=== PATIENT | female | born 1950 | race Caucasian/White ===

== ENCOUNTER 2021-02-02 14:01 | Emergency (ER) | payer MEDICARE, BC ==
[~2021-02-02] VITALS: Ht 167.6 cm; Wt 75.0 kg
[~2021-02-02 14:01] MED LIST: ALBU8.5H8 INH; BENZ-16 PO; CYCL-1 PO; DEXA6TAB PO; DICL100G15 TOP; ESOM40CA49 PO; FENO160T PO; FLO0.4C PO; LEVO100T PO; METO-395 PO; OLME5TAB3 PO; PITA2TAB2 PO; ZOLP5TAB8 PO
[2021-02-02] MEDS ORDERED: normal saline 1000ML IV soln IVB ONE ×2 (14:30→15:15)
[2021-02-02 14:46] LABS: BASOPHILS # (AUTO) 0.1 X10'3 (0-0.2); BASOPHILS % (AUTO) 1.2 % (0-1); EOSINOPHILS # (AUTO) 0.3 X10'3 (0-0.9); EOSINOPHILS % (AUTO) 5.6 % (0-6); HEMATOCRIT 35.3 % (35.0-45.0); HEMOGLOBIN 11.9 g/dl (12.0-16.0); LYMPHOCYTES # (AUTO) 1.5 X10'3 (1.1-4.8); LYMPHOCYTES % (AUTO) 24.1 % (21-51); MEAN CORPUSCULAR HEMOGLOBIN 29.6 PG (27.0-31.0); MEAN CORPUSCULAR HGB CONC 33.6 g/dL (33.0-36.5); MEAN CORPUSCULAR VOLUME 87.9 FL (78-98); MEAN PLATELET VOLUME 7.7 FL (7.4-10.4); MONOCYTES # (AUTO) 0.5 X10'3 (0-0.9); MONOCYTES % (AUTO) 7.6 % (2-12); NEUTROPHILS # (AUTO) 3.7 X10'3 (1.8-7.7); NEUTROPHILS % (AUTO) 61.5 % (42-75); PLATELET COUNT 302 X10'3 (140-440); RED BLOOD COUNT 4.01 X10'6 (4.20-5.60); RED CELL DISTRIBUTION WIDTH 15.1 % (11.5-14.5); WHITE BLOOD COUNT 6.1 X10'3 (4.5-11.0)
[2021-02-02 15:01] LABS: ALANINE AMINOTRANSFERASE 18 U/L (12-78); ALBUMIN 3.8 G/DL (3.4-5.0); ALBUMIN/GLOBULIN RATIO 1.2 (1.1-1.5); ALKALINE PHOSPHATASE 41 IU/L (46-116); ANION GAP 10 (8-16); ASPARTATE AMINO TRANSFERASE 34 U/L (10-37); BILIRUBIN,TOTAL 0.4 MG/DL (0.1-1.0); BLOOD UREA NITROGEN 34 MG/DL (7-18); BUN/CREATININE RATIO 17.8 (6.6-38.0); CALCIUM 10.5 MG/DL (8.5-10.1); CHLORIDE 95 MMOL/L (99-107); CREATININE 1.91 MG/DL (0.40-0.90); GLUCOSE 98 MG/DL (70-104); POTASSIUM 4.5 MMOL/L (3.5-5.1); SODIUM 129 MMOL/L (135-145); TOTAL CARBON DIOXIDE 24.3 MMOL/L (24-32); TOTAL PROTEIN 6.9 G/DL (6.4-8.2); eGFR 26 ML/MIN
[2021-02-02 15:08] LABS: MAGNESIUM 1.6 MG/DL (1.5-2.4)
[2021-02-02 16:36] VITALS: BP 161/98
== END 2021-02-02 16:37 | disposition home or self-care (01) ==
LOC: ER 14:01
DX: N17.9 Acute kidney failure, unspecified (principal); R55 Syncope and collapse; M54.2 Cervicalgia; R42 Dizziness and giddiness; I10 Essential (primary) hypertension; K21.9 Gastro-esophageal reflux disease without esophagitis; E03.9 Hypothyroidism, unspecified; G89.29 Other chronic pain; Z88.8 Allergy status to other drugs, medicaments and biological substances; Z88.1 Allergy status to other antibiotic agents; Z88.5 Allergy status to narcotic agent; Z88.6 Allergy status to analgesic agent; Z79.899 Other long term (current) drug therapy
CPT/HCPCS: 36415; 71045; 80053; 83735; 83880; 84484; 85025; 93005; 99285; J7030

== ENCOUNTER 2021-07-21 07:17 | Emergency (ER) | payer MEDICARE, BC ==
[~2021-07-21] VITALS: Ht 167.6 cm; Wt 77.0 kg
[~2021-07-21 07:17] MED LIST changes: +ALBU8.5H17 INH; -ALBU8.5H8 INH
[2021-07-21] MEDS ORDERED: acetaminophen 325mg tablet PO ONE (07:25)
[2021-07-21] MEDS ORDERED: HYDROcodone/acetaminophen 5mg/325mg tablet PO ONE (09:45)
[2021-07-21] MEDS ORDERED: oxyCODONE/APAP 5-325mg tablet PO ONE (10:00)
[2021-07-21 11:22] VITALS: BP 203/91
--- NOTE | 2021-07-21 11:29 | NUR ---
BACK BRACE APPLIED BY CONTRACTS SPECIALIST. BILL
[2021-07-21] MEDS ORDERED: PER5325T PO (13:49)
[2021-07-21] MEDS ORDERED: OXYC-145 PO (18:33)
== END 2021-07-21 11:56 | disposition home or self-care (01) ==
LOC: ER 07:20
DX: M48.54XA Collapsed vertebra, not elsewhere classified, thoracic region, initial encounter for fracture (principal); M54.89 Other dorsalgia; M25.551 Pain in right hip; I10 Essential (primary) hypertension; K21.9 Gastro-esophageal reflux disease without esophagitis; E03.9 Hypothyroidism, unspecified; G89.29 Other chronic pain; Z88.8 Allergy status to other drugs, medicaments and biological substances; Z88.1 Allergy status to other antibiotic agents; Z88.6 Allergy status to analgesic agent; Z79.899 Other long term (current) drug therapy
CPT/HCPCS: 72128; 72131; 72192; 73502; 99285

== ENCOUNTER 2021-07-21 17:56 | Emergency (ER) | payer MEDICARE, BC ==
[~2021-07-21] VITALS: Ht 167.6 cm; Wt 77.3 kg
[~2021-07-21 17:56] MED LIST changes: +PER5325T PO
[2021-07-21 18:28] VITALS: BP 151/100
--- NOTE | 2021-07-21 18:32 | NUR ---
pt seen, treated and d/c by provider in triage.
[2021-07-21] MEDS ORDERED: OXYC-145 PO (18:33)
== END 2021-07-21 18:37 | disposition home or self-care (01) ==
LOC: ER 17:57
DX: M54.6 Pain in thoracic spine (principal); I10 Essential (primary) hypertension; K21.9 Gastro-esophageal reflux disease without esophagitis; E03.9 Hypothyroidism, unspecified; G89.29 Other chronic pain; Z76.0 Encounter for issue of repeat prescription; Z88.8 Allergy status to other drugs, medicaments and biological substances; Z88.5 Allergy status to narcotic agent; Z88.1 Allergy status to other antibiotic agents; Z88.6 Allergy status to analgesic agent; Z79.899 Other long term (current) drug therapy
CPT/HCPCS: 99281; 99283

== ENCOUNTER → 2021-09-01 | Emergency (ER) | payer MEDICARE, BC ==
[~2021-09-01] VITALS: Ht 167.6 cm; Wt 75.0 kg
[~2021-09-01] MED LIST changes: +CEPH250C PO; +DEC4T PO; +LISI20TA28 PO; +NOR5T PO; +ONDA4TAB6 PO; +OXYC-145 PO; +OXYC5CAP19 PO; +OXYC5TAB2 PO; +PREG200C28 PO; +fentaNYL/PF 50MCG/1 ML 2ML syringe IV ONE; +hydrALAZINE 20mg/ml inj. IV ONE; +morphine 4 MG/ML inj SYRINge IV ONE; +ondansetron/PF 4mg/2ml inj IV ONE
[2021-09-01 15:45] VITALS: BP 128/87
== END | disposition home or self-care (01) ==
LOC: ER 12:22
DX: M54.89 Other dorsalgia (principal); I10 Essential (primary) hypertension; R11.2 Nausea with vomiting, unspecified; R51.9 Headache, unspecified; K21.9 Gastro-esophageal reflux disease without esophagitis; E03.9 Hypothyroidism, unspecified; G89.29 Other chronic pain; Z88.1 Allergy status to other antibiotic agents; Z88.8 Allergy status to other drugs, medicaments and biological substances; Z88.6 Allergy status to analgesic agent; Z79.899 Other long term (current) drug therapy
CPT/HCPCS: 96374; 96375; 99284; J0360; J2270; J2405; J3010

== ENCOUNTER 2021-09-02 11:52 | Inpatient (IN) | payer MEDICARE, BC ==
[~2021-09-02] VITALS: Ht 165.1 cm; Wt 70.0 kg
[~2021-09-02 11:52] MED LIST changes: -CEPH250C PO; -DEC4T PO; -LISI20TA28 PO; -NOR5T PO; -OXYC5TAB2 PO; -PER5325T PO; -PREG200C28 PO; -fentaNYL/PF 50MCG/1 ML 2ML syringe IV ONE; -hydrALAZINE 20mg/ml inj. IV ONE; -morphine 4 MG/ML inj SYRINge IV ONE; -ondansetron/PF 4mg/2ml inj IV ONE
[2021-09-02] MEDS ORDERED: ondansetron 4mg rapidly disintigrating tab PO ONE (12:05)
[2021-09-02 12:54] LABS: BASOPHILS % (AUTO) 0.5 % (0-1); EOSINOPHILS # (AUTO) 0.1 X10'3 (0-0.9); EOSINOPHILS % (AUTO) 1.3 % (0-6); HEMATOCRIT 42.1 % (35.0-45.0); HEMOGLOBIN 14.2 g/dl (12.0-16.0); LYMPHOCYTES # (AUTO) 0.6 X10'3 (1.1-4.8); LYMPHOCYTES % (AUTO) 8.1 % (21-51); MEAN CORPUSCULAR HEMOGLOBIN 31.3 PG (27.0-31.0); MEAN CORPUSCULAR HGB CONC 33.8 g/dL (33.0-36.5); MEAN CORPUSCULAR VOLUME 92.8 FL (78-98); MEAN PLATELET VOLUME 7.4 FL (7.4-10.4); MONOCYTES # (AUTO) 0.6 X10'3 (0-0.9); MONOCYTES % (AUTO) 7.7 % (2-12); NEUTROPHILS % (AUTO) 82.4 % (42-75); PLATELET COUNT 341 X10'3 (140-440); RED BLOOD COUNT 4.54 X10'6 (4.20-5.60); RED CELL DISTRIBUTION WIDTH 13.9 % (11.5-14.5); WHITE BLOOD COUNT 7.3 X10'3 (4.5-11.0)
[2021-09-02 13:02] LABS: ALANINE AMINOTRANSFERASE 109 U/L (12-78); ALBUMIN 4.3 G/DL (3.4-5.0); ALBUMIN/GLOBULIN RATIO 1.3 (1.1-1.5); ALKALINE PHOSPHATASE 111 IU/L (46-116); ANION GAP 12 (8-16); ASPARTATE AMINO TRANSFERASE 132 U/L (10-37); BILIRUBIN,TOTAL 0.5 MG/DL (0.1-1.0); BLOOD UREA NITROGEN 20 MG/DL (7-18); BUN/CREATININE RATIO 13.5 (6.6-38.0); CALCIUM 11.2 MG/DL (8.5-10.1); CHLORIDE 90 MMOL/L (99-107); CREATININE 1.48 MG/DL (0.40-0.90); GLUCOSE 124 MG/DL (70-104); POTASSIUM 3.4 MMOL/L (3.5-5.1); SODIUM 131 MMOL/L (135-145); TOTAL CARBON DIOXIDE 29.4 MMOL/L (24-32); TOTAL PROTEIN 7.6 G/DL (6.4-8.2); eGFR 35 ML/MIN
[2021-09-02 13:11] LABS: LIPASE 104 U/L (73-393); MAGNESIUM 1.5 MG/DL (1.5-2.4)
[2021-09-02] MEDS ORDERED: labetalol 20mg/4ml (5mg/ml) syringe IV ONE (13:20)
[2021-09-02] MEDS ORDERED: iohexol 350MG/ML 100ml bottle IV ONE (13:27)
[2021-09-02 13:43] LABS: CLARITY,URINE CLEAR (Clear); COLOR,URINE STRAW (Yellow); GLUCOSE, URINE NEGATIVE (Neg); KETONES,URINE NEGATIVE (Neg); LEUKOCYTE ESTERASE ,URINE NEGATIVE (Neg); NITRITES, URINE NEGATIVE (Neg); OCCULT BLOOD,URINE NEGATIVE (Neg); PH,URINE 6.5 (4.8-8.0); PROTEIN,URINE 100 mg/dl (Neg); UA COLLECTION TYPE FOLEY CATH; UROBILINOGEN,URINE 0.2 E.U/dL (0.2-1.0)
[2021-09-02 13:49] LABS: BACTERIA,URINE NONE SEEN /HPF (Neg); COARSE GRANULAR CAST 0-3 /LPF (NEGATIVE); MUCUS STRANDS NONE SEEN /LPF (Neg); RBC,URINE 0-2 /HPF (0-2); SQUAMOUS EPITHELIAL CELL,UR FEW /LPF (FEW); WBC,URINE NONE SEEN /HPF (0-4)
[2021-09-02] MEDS ORDERED: morphine 4 MG/ML inj SYRINge IV ONE (14:05)
[2021-09-02] MEDS ORDERED: ondansetron/PF 4mg/2ml inj IV ONE (14:05)
[2021-09-02] MEDS ORDERED: heparin 25,000 UNIT/250ml bag 250 ML IV SCH (14:55)
[2021-09-02] MEDS ORDERED: heparin 10,000 units/1 ML INJ IV PRN (14:55)
[2021-09-02] MEDS ORDERED: aspirin 325mg tablet PO ONE (14:55)
[2021-09-02] MEDS ORDERED: heparin 10,000 units/1 ML INJ IV ONE ×2 (14:55→15:00)
[2021-09-02] MEDS ORDERED: hydrALAZINE 20mg/ml inj. IV ONE (15:05)
--- NOTE | 2021-09-02 15:27 | NUR ---
RICH [phone]
[2021-09-02 15:30] LABS: PARTIAL THROMBOPLASTIN TIME 30 SECONDS (22-32)
[2021-09-02] MEDS ORDERED: niCARDipine-NS 40mg/200ml IVPB 200 ML IV ONE (15:45)
[2021-09-02] MEDS ORDERED: CEPH250C PO (16:14)
[2021-09-02] MEDS ORDERED: PREG200C28 PO (16:14)
[2021-09-02] MEDS ORDERED: OXYC5TAB2 PO (16:14)
[2021-09-02] MEDS ORDERED: PER5325T PO (16:14)
[2021-09-02] MEDS ORDERED: LORazepam 1 MG tablet PO ONE (16:15)
[2021-09-02] MEDS ORDERED: mag hydrox/Alum hydrox/simeth 30ml oral suspension PO PRN (18:00)
[2021-09-02] MEDS ORDERED: potassium Cl 40MEQ/1/2NS 520ml 520 ML IV PRN ×2 (18:00)
[2021-09-02] MEDS ORDERED: HYDROcodone/acetaminophen 10/325mg tab PO PRN (18:00)
[2021-09-02] MEDS ORDERED: acetaminophen 325mg tablet PO PRN ×2 (18:00)
[2021-09-02] MEDS ORDERED: morphine 2 MG/ML inj. syringe IV PRN (18:00)
[2021-09-02] MEDS ORDERED: magnesium Cl slow-release 64mg tablet PO PRN (18:00)
[2021-09-02] MEDS ORDERED: magnesium 2GM in 50ml NS 50 ML IV PRN (18:00)
[2021-09-02] MEDS ORDERED: potassium Cl 20 mEq SR tablet PO PRN ×2 (18:00)
[2021-09-02] MEDS ORDERED: magnesium 4gm in 100ml NS 100 ML IV PRN (18:00)
[2021-09-02 18:28] LABS: LACTATE DEHYDROGENASE 308 U/L (81-234)
[2021-09-02] MEDS: K and/or MAG REPLACEMENT MC SCH (19:51)
[2021-09-02] MEDS: normal saline 1000ml 1,000 ML IV SCH (20:00)
[2021-09-02] MEDS ORDERED: heparin, porcine 5000 units/ml vial SQ SCH (20:00)
[2021-09-02] MEDS: ondansetron/PF 4mg/2ml inj IV PRN (22:16)
[2021-09-02] MEDS: morphine 2 MG/ML inj. syringe IV PRN (22:16)
[2021-09-02 23:16] LABS: URINE AMPHETAMINE SCREEN NEGATIVE (Neg); URINE BARBITUATE SCREEN NEGATIVE (Neg); URINE BENZODIAZEPINES SCREEN NEGATIVE (Neg); URINE CANNABINOID SCREEN NEGATIVE (Neg); URINE COCAINE SCREEN NEGATIVE (Neg); URINE METHADONE SCREEN NEGATIVE (Neg); URINE OPIATE SCREEN POSITIVE (Neg); URINE PHENCYCLIDINE SCREEN NEGATIVE (Neg)
[2021-09-03] MEDS: lisinopril 10 MG tablet PO SCH ×2 (03:53→07:50)
[2021-09-03] MEDS: normal saline 1000ml 1,000 ML IV SCH ×2 (04:06→15:39)
[2021-09-03 05:50] LABS: ALANINE AMINOTRANSFERASE 84 U/L (12-78); ALBUMIN 3.5 G/DL (3.4-5.0); ALBUMIN/GLOBULIN RATIO 1.3 (1.1-1.5); ALKALINE PHOSPHATASE 92 IU/L (46-116); ANION GAP 8 (8-16); ASPARTATE AMINO TRANSFERASE 67 U/L (10-37); BILIRUBIN,TOTAL 0.4 MG/DL (0.1-1.0); BLOOD UREA NITROGEN 14 MG/DL (7-18); BUN/CREATININE RATIO 12.6 (6.6-38.0); CHLORIDE 97 MMOL/L (99-107); CREATININE 1.11 MG/DL (0.40-0.90); GLUCOSE 91 MG/DL (70-104); MAGNESIUM 1.4 MG/DL (1.5-2.4); POTASSIUM 3.2 MMOL/L (3.5-5.1); SODIUM 134 MMOL/L (135-145); TOTAL CARBON DIOXIDE 28.9 MMOL/L (24-32); TOTAL PROTEIN 6.3 G/DL (6.4-8.2); eGFR 48 ML/MIN
[2021-09-03 06:02] LABS: BASOPHILS # (AUTO) 0.1 X10'3 (0-0.2); BASOPHILS % (AUTO) 0.9 % (0-1); EOSINOPHILS # (AUTO) 0.3 X10'3 (0-0.9); EOSINOPHILS % (AUTO) 5.4 % (0-6); HEMATOCRIT 37.7 % (35.0-45.0); HEMOGLOBIN 12.7 g/dl (12.0-16.0); LYMPHOCYTES # (AUTO) 0.6 X10'3 (1.1-4.8); LYMPHOCYTES % (AUTO) 10.4 % (21-51); MEAN CORPUSCULAR HEMOGLOBIN 31.9 PG (27.0-31.0); MEAN CORPUSCULAR HGB CONC 33.8 g/dL (33.0-36.5); MEAN CORPUSCULAR VOLUME 94.3 FL (78-98); MEAN PLATELET VOLUME 7.7 FL (7.4-10.4); MONOCYTES # (AUTO) 0.5 X10'3 (0-0.9); MONOCYTES % (AUTO) 8.8 % (2-12); NEUTROPHILS # (AUTO) 4.3 X10'3 (1.8-7.7); NEUTROPHILS % (AUTO) 74.5 % (42-75); PLATELET COUNT 309 X10'3 (140-440); RED CELL DISTRIBUTION WIDTH 14.3 % (11.5-14.5); WHITE BLOOD COUNT 5.8 X10'3 (4.5-11.0)
[2021-09-03] MEDS: morphine 2 MG/ML inj. syringe IV PRN (06:32)
[2021-09-03] MEDS: ondansetron/PF 4mg/2ml inj IV PRN (06:32)
[2021-09-03] MEDS: pantoprazole 40mg Tablet.DR PO SCH (07:49)
[2021-09-03] MEDS: atorvastatin 10mg tablet PO SCH (07:49)
[2021-09-03] MEDS: CefTRIAXone 2gm/D5W 50ml BAG 50 ML IV SCH (07:51)
[2021-09-03] MEDS: K and/or MAG REPLACEMENT MC SCH ×2 (08:00→20:00)
[2021-09-03] MEDS ORDERED: levoTHYROXINE 100mcg tablet PO SCH (08:00)
[2021-09-03] MEDS ORDERED: zolpidem 5mg tablet PO PRN (09:05)
--- NOTE | 2021-09-03 09:37 | NUR ---
paged Dr. Salas regarding pt name yaquelin quinn on ED ,finished the MRI screen form, she is claustrophobic according to , CAN we medicate her for that SHEWIT
[2021-09-03] MEDS: amLODIPine 5mg tablet PO SCH (10:02)
[2021-09-03] MEDS: pregabalin 75mg capsule PO SCH ×2 (10:05→21:41)
[2021-09-03] MEDS: pregabalin 25mg capsule PO SCH ×2 (10:10→21:41)
[2021-09-03] MEDS ORDERED: hyDRALAzine 10mg tablet PO PRN (10:20)
--- NOTE | 2021-09-03 11:07 | NUR ---
Dr. Salas was paged regarding pt name yaquelin quinn on ED ,finished the MRI screen form, she is claustrophobic according to , CAN we medicate her for that SHEWIT
[2021-09-03 15:00] VITALS: BP 123/84
[2021-09-03] MEDS ORDERED: LORazepam 1 MG tablet PO ONE (15:30)
[2021-09-03] MEDS: fenofibrate 145mg tablet PO SCH (15:41)
--- NOTE | 2021-09-03 17:54 | NUR ---
PAGER ID: [phone] MESSAGE: [id number] HANNA FOUND ON FLOOR. V/S - HR 100, BP 164/100, 95% RA . NO S/S OF INJURY. PATRICIA HALL
[2021-09-03 18:00] VITALS: BP 142/83
--- NOTE | 2021-09-03 18:45 | NUR ---
Received report from Jessica BRITTON.
--- NOTE | 2021-09-03 19:00 | NUR ---
Dr Wilson from [facility] called regarding the MRI critical results. These results were relayed to our MD.
[2021-09-03 19:33] LABS: D-DIMER 0.88 MG/L FEU (0-0.50)
[2021-09-03 19:36] LABS: C-REACTIVE PROTEIN 1.03 MG/DL (0.0-0.5)
[2021-09-03] MEDS: heparin, porcine 5000 units/ml vial SQ SCH (21:40)
[2021-09-03 22:00] VITALS: BP 175/94
[2021-09-03] MEDS: methylPREDNISolone sod succ 125mg/2ml vial IV SCH (22:34)
[2021-09-04] VITALS (7 sets, daily range): BP systolic 121–166; BP diastolic 78–96
[2021-09-04] MEDS: normal saline 1000ml 1,000 ML IV SCH ×3 (00:06→19:45)
--- NOTE | 2021-09-04 06:30 | NUR ---
Problems reprioritized. Patient report given, questions answered & plan of care reviewed with Luanne BRITTON.
[2021-09-04 06:47] LABS: BASOPHILS % (AUTO) 0.5 % (0-1); EOSINOPHILS % (AUTO) 0.1 % (0-6); HEMOGLOBIN 12.9 g/dl (12.0-16.0); LYMPHOCYTES # (AUTO) 0.4 X10'3 (1.1-4.8); LYMPHOCYTES % (AUTO) 14.1 % (21-51); MEAN CORPUSCULAR HEMOGLOBIN 31.8 PG (27.0-31.0); MEAN CORPUSCULAR HGB CONC 33.9 g/dL (33.0-36.5); MEAN CORPUSCULAR VOLUME 93.9 FL (78-98); MEAN PLATELET VOLUME 7.5 FL (7.4-10.4); MONOCYTES % (AUTO) 1.2 % (2-12); NEUTROPHILS # (AUTO) 2.3 X10'3 (1.8-7.7); NEUTROPHILS % (AUTO) 84.1 % (42-75); PLATELET COUNT 300 X10'3 (140-440); RED BLOOD COUNT 4.05 X10'6 (4.20-5.60); RED CELL DISTRIBUTION WIDTH 13.8 % (11.5-14.5); WHITE BLOOD COUNT 2.7 X10'3 (4.5-11.0)
[2021-09-04 07:00] LABS: ALANINE AMINOTRANSFERASE 57 U/L (12-78); ALBUMIN 3.4 G/DL (3.4-5.0); ALBUMIN/GLOBULIN RATIO 1.2 (1.1-1.5); ALKALINE PHOSPHATASE 89 IU/L (46-116); ANION GAP 9 (8-16); ASPARTATE AMINO TRANSFERASE 31 U/L (10-37); BILIRUBIN,TOTAL 0.3 MG/DL (0.1-1.0); BLOOD UREA NITROGEN 14 MG/DL (7-18); BUN/CREATININE RATIO 14.4 (6.6-38.0); CALCIUM 9.1 MG/DL (8.5-10.1); CHLORIDE 103 MMOL/L (99-107); CREATININE 0.97 MG/DL (0.40-0.90); GLUCOSE 127 MG/DL (70-104); MAGNESIUM 1.6 MG/DL (1.5-2.4); POTASSIUM 4.6 MMOL/L (3.5-5.1); SODIUM 138 MMOL/L (135-145); TOTAL PROTEIN 6.3 G/DL (6.4-8.2); eGFR 56 ML/MIN
[2021-09-04] MEDS: heparin, porcine 5000 units/ml vial SQ SCH ×2 (07:07→09:45)
[2021-09-04] MEDS: pantoprazole 40mg Tablet.DR PO SCH (09:44)
[2021-09-04] MEDS: CefTRIAXone 2gm/D5W 50ml BAG 50 ML IV SCH (09:44)
[2021-09-04] MEDS: fenofibrate 145mg tablet PO SCH (09:44)
[2021-09-04] MEDS: atorvastatin 10mg tablet PO SCH (09:44)
[2021-09-04] MEDS: methylPREDNISolone sod succ 125mg/2ml vial IV SCH ×2 (09:45→19:44)
[2021-09-04] MEDS: lisinopril 10 MG tablet PO SCH (09:45)
[2021-09-04] MEDS: levoTHYROXINE 125mcg tablet PO SCH (09:46)
[2021-09-04] MEDS: pregabalin 75mg capsule PO SCH ×2 (09:46→19:44)
[2021-09-04] MEDS: amLODIPine 5mg tablet PO SCH (09:47)
[2021-09-04] MEDS: pregabalin 25mg capsule PO SCH ×2 (09:49→19:42)
[2021-09-04] MEDS: HYDROcodone/acetaminophen 5mg/325mg tablet PO PRN ×3 (10:08→19:42)
--- NOTE | 2021-09-04 11:19 | NUR ---
page to orthopedic tech [id number] Scar. Pt needs fitted for TLSO brace please. Angle [phone]
[2021-09-04 11:26] LABS: TOTAL CELLS COUNTED 100
[2021-09-04 11:27] LABS: PLATELET ESTIMATE NORMAL
--- NOTE | 2021-09-04 11:32 | NUR ---
Page to orthopaedic doctor 3016Z Scar. TLSO brace fitting no longer needed. Pt will have bring in brace from home. Angle [phone]
[2021-09-04 18:27] LABS: D-DIMER 0.81 MG/L FEU (0-0.50)
[2021-09-04 18:28] LABS: C-REACTIVE PROTEIN 1.12 MG/DL (0.0-0.5)
[2021-09-04] MEDS: K and/or MAG REPLACEMENT MC SCH (19:44)
[2021-09-05 02:00] VITALS: BP 173/84
[2021-09-05 06:00] VITALS: BP 141/71
--- NOTE | 2021-09-05 06:31 | NUR ---
Patient in room PCU 3014. I have received report from Amber BRITTON and had the opportunity to ask questions and assume patient care. Patient resting in bed in no acute distress.
[2021-09-05 07:17] LABS: BASOPHILS % (AUTO) 0 % (0-1); EOSINOPHILS % (AUTO) 0 % (0-6); HEMATOCRIT 34.1 % (35.0-45.0); HEMOGLOBIN 11.6 g/dl (12.0-16.0); LYMPHOCYTES # (AUTO) 0.5 X10'3 (1.1-4.8); LYMPHOCYTES % (AUTO) 6.9 % (21-51); MEAN CORPUSCULAR HEMOGLOBIN 32.2 PG (27.0-31.0); MEAN CORPUSCULAR HGB CONC 34.1 g/dL (33.0-36.5); MEAN CORPUSCULAR VOLUME 94.2 FL (78-98); MEAN PLATELET VOLUME 7.7 FL (7.4-10.4); MONOCYTES # (AUTO) 0.2 X10'3 (0-0.9); NEUTROPHILS % (AUTO) 90.1 % (42-75); PLATELET COUNT 275 X10'3 (140-440); RED BLOOD COUNT 3.62 X10'6 (4.20-5.60); RED CELL DISTRIBUTION WIDTH 14.3 % (11.5-14.5); WHITE BLOOD COUNT 7.7 X10'3 (4.5-11.0)
[2021-09-05 07:41] LABS: ALANINE AMINOTRANSFERASE 40 U/L (12-78); ALBUMIN 3.1 G/DL (3.4-5.0); ALBUMIN/GLOBULIN RATIO 1.1 (1.1-1.5); ALKALINE PHOSPHATASE 73 IU/L (46-116); ANION GAP 11 (8-16); ASPARTATE AMINO TRANSFERASE 18 U/L (10-37); BILIRUBIN,TOTAL 0.2 MG/DL (0.1-1.0); BLOOD UREA NITROGEN 22 MG/DL (7-18); BUN/CREATININE RATIO 20.6 (6.6-38.0); CALCIUM 8.9 MG/DL (8.5-10.1); CHLORIDE 105 MMOL/L (99-107); CREATININE 1.07 MG/DL (0.40-0.90); GLUCOSE 135 MG/DL (70-104); MAGNESIUM 1.6 MG/DL (1.5-2.4); POTASSIUM 4.1 MMOL/L (3.5-5.1); SODIUM 140 MMOL/L (135-145); TOTAL CARBON DIOXIDE 24.5 MMOL/L (24-32); TOTAL PROTEIN 5.8 G/DL (6.4-8.2); eGFR 50 ML/MIN
[2021-09-05 08:00] VITALS: BP_SYST 186; BP_SYST 193; BP_DIAS 103; BP_DIAS 109; BP_DIAS 94
[2021-09-05] MEDS: heparin, porcine 5000 units/ml vial SQ SCH (08:00)
[2021-09-05] MEDS: methylPREDNISolone sod succ 125mg/2ml vial IV SCH (08:00)
[2021-09-05] MEDS: pregabalin 75mg capsule PO SCH (08:00)
[2021-09-05] MEDS: CefTRIAXone 2gm/D5W 50ml BAG 50 ML IV SCH (08:00)
[2021-09-05] MEDS: pregabalin 25mg capsule PO SCH (08:00)
[2021-09-05] MEDS ORDERED: lisinopril 20mg tablet PO SCH (08:00)
[2021-09-05] MEDS: K and/or MAG REPLACEMENT MC SCH (08:00)
[2021-09-05] MEDS: fenofibrate 145mg tablet PO SCH (09:30)
[2021-09-05] MEDS: levoTHYROXINE 125mcg tablet PO SCH (09:33)
[2021-09-05] MEDS: atorvastatin 10mg tablet PO SCH (09:33)
[2021-09-05] MEDS: amLODIPine 5mg tablet PO SCH (09:34)
[2021-09-05] MEDS: HYDROcodone/acetaminophen 5mg/325mg tablet PO PRN (09:47)
[2021-09-05] MEDS: pantoprazole 40mg Tablet.DR PO SCH (09:47)
[2021-09-05] MEDS ORDERED: LISI20TA28 PO (10:29)
[2021-09-05] MEDS ORDERED: NOR5T PO (10:29)
[2021-09-05] MEDS ORDERED: DEC4T PO (10:29)
[2021-09-05 11:00] VITALS: BP 152/82
--- NOTE | 2021-09-05 11:25 | NUR ---
I called [phone] and left a message regarding new L1 finding per Dr. soto's request. I also faxed over a copy of MRI to his office. I am waiting to hear back from the office to see if we can get an in person appt.
[2021-09-05 12:10] VITALS: BP_SYST 186; BP_SYST 193; BP_DIAS 103; BP_DIAS 109; BP_DIAS 94
[2021-09-05 13:36] LABS: C-REACTIVE PROTEIN 0.27 MG/DL (0.0-0.5)
--- NOTE | 2021-09-05 18:04 | NUR ---
Student documentation: I have reviewed and agree with all interventions, assessments performed and documented by Magaly BRITTON. Student Medication Administration: For this medication-pass time frame, all medication were reviewed, dispensed, administered and documented per hospital policy by Magaly BRITTON.
== END 2021-09-05 14:15 | disposition home or self-care (01) | DRG 551 ==
LOC: ER 11:53 → ED HOLD 18:02 → EDBEDREQ 09-03 12:40 → PCU 3S 09-03 13:49
PROVIDERS: ADMIT Internal Medicine; ATTEND Internal Medicine
PROC: B32T1ZZ Computerized Tomography (CT Scan) of Left Pulmonary Artery using Low Osmolar Contrast (ICD-10-PCS; principal; 2021-09-02)
PROC: B3201ZZ Computerized Tomography (CT Scan) of Thoracic Aorta using Low Osmolar Contrast (ICD-10-PCS; 2021-09-02)
PROC: B32S1ZZ Computerized Tomography (CT Scan) of Right Pulmonary Artery using Low Osmolar Contrast (ICD-10-PCS; 2021-09-02)
PROC: B4201ZZ Computerized Tomography (CT Scan) of Abdominal Aorta using Low Osmolar Contrast (ICD-10-PCS; 2021-09-02)
PROC: B4241ZZ Computerized Tomography (CT Scan) of Superior Mesenteric Artery using Low Osmolar Contrast (ICD-10-PCS; 2021-09-02)
PROC: B4281ZZ Computerized Tomography (CT Scan) of Bilateral Renal Arteries using Low Osmolar Contrast (ICD-10-PCS; 2021-09-02)
PROC: B42C1ZZ Computerized Tomography (CT Scan) of Pelvic Arteries using Low Osmolar Contrast (ICD-10-PCS; 2021-09-02)
PROC: B42H1ZZ Computerized Tomography (CT Scan) of Bilateral Lower Extremity Arteries using Low Osmolar Contrast (ICD-10-PCS; 2021-09-02)
PROC: B4211ZZ Computerized Tomography (CT Scan) of Celiac Artery using Low Osmolar Contrast (ICD-10-PCS; 2021-09-02)
DX: S32.011A Stable burst fracture of first lumbar vertebra, initial encounter for closed fracture (principal); I21.A1 Myocardial infarction type 2; I16.1 Hypertensive emergency; S22.089A Unspecified fracture of T11-T12 vertebra, initial encounter for closed fracture; E87.1 Hypo-osmolality and hyponatremia; N17.9 Acute kidney failure, unspecified; E87.6 Hypokalemia; E83.52 Hypercalcemia; N18.30 Chronic kidney disease, stage 3 unspecified; Z20.822 Contact with and (suspected) exposure to COVID-19; R77.8 Other specified abnormalities of plasma proteins; W18.39XA Other fall on same level, initial encounter; I12.9 Hypertensive chronic kidney disease with stage 1 through stage 4 chronic kidney disease, or unspecified chronic kidney disease; E03.9 Hypothyroidism, unspecified; M48.00 Spinal stenosis, site unspecified; G89.29 Other chronic pain; K21.9 Gastro-esophageal reflux disease without esophagitis; M54.9 Dorsalgia, unspecified; R29.6 Repeated falls; Z88.1 Allergy status to other antibiotic agents; Z88.8 Allergy status to other drugs, medicaments and biological substances; Z84.89 Family history of other specified conditions; Y93.89 Activity, other specified; Y92.89 Other specified places as the place of occurrence of the external cause; Y99.8 Other external cause status
CPT/HCPCS: 36415; 70450; 71045; 71275; 72146; 72148; 74174; 80053; 80305; 80346; 81001; 83605; 83615; 83690; 83735; 83880; 84145; 84443; 84484; 85007; 85025; 85379; 85610; 85730; 86140; 87040; 87635; 93005; 93306; 96365; 96375; 96376; 97116; 97161; 97530; 99285; G0378; J0360; J0696; J1644; J2270; J2405; J2930; J3480; J3490; J7030; Q9967

== ENCOUNTER 2023-06-09 17:02 | Inpatient (IN) | payer MEDICARE, BC ==
[~2023-06-09] VITALS: Ht 162.6 cm; Wt 79.5 kg
[~2023-06-09 17:02] MED LIST changes: -ALBU8.5H17 INH; -BENZ-16 PO; -CYCL-1 PO; -DEXA6TAB PO; -FLO0.4C PO; -LEVO100T PO; -METO-395 PO; +OLME20TA74 PO; -OLME5TAB3 PO; -ONDA4TAB6 PO; -OXYC-145 PO; -OXYC5CAP19 PO; +OXYC5TAB2 PO; +PREG200C PO; -ZOLP5TAB8 PO
[2023-06-09 19:46] LABS: BASOPHILS # (AUTO) 0.1 X10'3 (0-0.2); BASOPHILS % (AUTO) 0.8 % (0-1); EOSINOPHILS % (AUTO) 0.5 % (0-6); HEMATOCRIT 35.4 % (35.0-45.0); HEMOGLOBIN 12.3 g/dl (12.0-16.0); LYMPHOCYTES # (AUTO) 0.7 X10'3 (1.1-4.8); LYMPHOCYTES % (AUTO) 9.8 % (21-51); MEAN CORPUSCULAR HEMOGLOBIN 32.7 PG (27.0-31.0); MEAN CORPUSCULAR HGB CONC 34.6 g/dL (33.0-36.5); MEAN CORPUSCULAR VOLUME 94.6 FL (78-98); MEAN PLATELET VOLUME 7.2 FL (7.4-10.4); MONOCYTES # (AUTO) 0.6 X10'3 (0-0.9); NEUTROPHILS # (AUTO) 6.1 X10'3 (1.8-7.7); NEUTROPHILS % (AUTO) 80.9 % (42-75); PLATELET COUNT 408 X10'3 (140-440); RED BLOOD COUNT 3.75 X10'6 (4.20-5.60); RED CELL DISTRIBUTION WIDTH 13.4 % (11.5-14.5); WHITE BLOOD COUNT 7.5 X10'3 (4.5-11.0)
[2023-06-09 19:53] LABS: APTT 32 SECONDS (22-32)
[2023-06-09 19:55] LABS: ALANINE AMINOTRANSFERASE 130 U/L (12-78); ALBUMIN 3.9 G/DL (3.4-5.0); ALBUMIN/GLOBULIN RATIO 1.4 (1.1-1.5); ALKALINE PHOSPHATASE 52 IU/L (46-116); ANION GAP 10 (8-16); ASPARTATE AMINO TRANSFERASE 145 U/L (10-37); BILIRUBIN,TOTAL 0.7 MG/DL (0.1-1.0); BLOOD UREA NITROGEN 15 MG/DL (7-18); BUN/CREATININE RATIO 15.2 (10.0-20.0); CALCIUM 8.4 MG/DL (8.5-10.1); CHLORIDE 85 MMOL/L (99-107); CREATININE 0.99 MG/DL (0.40-0.90); ETHANOL < 10 MG/DL (<10); GLUCOSE 111 MG/DL (70-104); LIPASE 72 U/L (73-393); MAGNESIUM 1.5 MG/DL (1.5-2.4); POTASSIUM 3.3 MMOL/L (3.5-5.1); TOTAL CARBON DIOXIDE 23.8 MMOL/L (24-32); TOTAL PROTEIN 6.7 G/DL (6.4-8.2); eCRCL 44 ML/MIN; eGFR 55 ML/MIN
[2023-06-09 20:12] LABS: SODIUM 119 MMOL/L (135-145)
[2023-06-09 20:33] LABS: BILIRUBIN,URINE NEGATIVE (Neg); CLARITY,URINE SLIGHTLY CLOUDY (Clear); COLOR,URINE YELLOW (Yellow); GLUCOSE, URINE NEGATIVE (Neg); KETONES,URINE TRACE mg/dl (Neg); LEUKOCYTE ESTERASE ,URINE NEGATIVE (Neg); NITRITES, URINE NEGATIVE (Neg); OCCULT BLOOD,URINE NEGATIVE (Neg); PH,URINE 6.5 (4.8-8.0); PROTEIN,URINE 30 mg/dl (Neg); UROBILINOGEN,URINE 0.2 E.U/dL (0.2-1.0)
--- NOTE | 2023-06-09 20:52 | NUR ---
Assumed care from Hortensia REYNOLDS
[2023-06-09 21:05] LABS: UA COLLECTION TYPE CLN CATCH MIDSTREAM
--- NOTE | 2023-06-09 21:06 | NUR ---
pt recieved 300mls NS from [facility].
[2023-06-09 21:07] LABS: SQUAMOUS EPITHELIAL CELL,UR MANY /LPF (FEW)
[2023-06-09 21:08] LABS: CELLULAR CAST 0-4 /LPF (NEGATIVE)
[2023-06-09 21:09] LABS: HYALINE CASTS 0-3 /LPF (NEGATIVE); RENAL CELLS, URINE FEW /HPF; TRANSITIONAL EPI CELLS,URINE FEW /HPF; WBC,URINE 0-4 /HPF (0-4)
[2023-06-09 21:10] LABS: BACTERIA,URINE 2+ /HPF (Neg); RBC,URINE 0-2 /HPF (0-2)
[2023-06-09 21:38] LABS: PRO BRAIN NATRIURETIC PEPTIDE 587 PG/ML (0-125)
[2023-06-09 22:12] LABS: CHLORIDE,URINE RANDOM < 50 MEQ/L; SODIUM,URINE RANDOM 38 MEQ/L
[2023-06-09] MEDS ORDERED: normal saline 1000ML IV soln IVB ONE (22:15)
[2023-06-09 22:23] LABS: THYROID STIMULATING HORMONE 0.63 ulU/ml (0.34-4.50); URIC ACID 2.9 MG/DL (2.5-6.2)
[2023-06-09] MEDS ORDERED: magnesium hydroxide 30ml (MOM) UD suspension PO PRN (22:40)
[2023-06-09] MEDS ORDERED: HYDROcodone/acetaminophen 5mg/325mg tablet PO PRN (22:40)
[2023-06-09] MEDS ORDERED: acetaminophen 325mg tablet PO PRN (22:40)
[2023-06-09 23:49] LABS: UA CALCIUM RANDOM 6.3 MG/DL
--- NOTE | 2023-06-09 23:56 | NUR ---
Placed purewick on patient.
[2023-06-10 00:11] LABS: ALBUMIN 3.6 G/DL (3.4-5.0); ANION GAP 13 (8-16); BLOOD UREA NITROGEN 15 MG/DL (7-18); CALCIUM 8.1 MG/DL (8.5-10.1); CHLORIDE 89 MMOL/L (99-107); CREATININE 0.94 MG/DL (0.40-0.90); FREE T4 (FREE THYROXINE) 1.48 NG/DL (0.73-1.40); GLUCOSE 99 MG/DL (70-104); POTASSIUM 3.2 MMOL/L (3.5-5.1); SODIUM 124 MMOL/L (135-145); TOTAL CARBON DIOXIDE 22.1 MMOL/L (24-32); eCRCL 46 ML/MIN; eGFR 58 ML/MIN
[2023-06-10] MEDS ORDERED: PER5325T PO (00:17)
[2023-06-10] MEDS ORDERED: LEVO100T PO (00:17)
[2023-06-10] MEDS ORDERED: AMLO10TA13 PO (00:17)
[2023-06-10] MEDS ORDERED: PREG200C28 PO (00:17)
[2023-06-10] MEDS ORDERED: DULO30CA52 PO (00:17)
[2023-06-10] MEDS ORDERED: CHOL500044 PO (00:17)
[2023-06-10] MEDS ORDERED: OLME20TA23 PO (00:17)
[2023-06-10] MEDS ORDERED: ESOM40CA54 PO (00:17)
[2023-06-10] MEDS ORDERED: ZOLP5TAB8 PO (00:17)
[2023-06-10] MEDS ORDERED: CEPH250C PO (00:17)
[2023-06-10] MEDS ORDERED: normal saline 1000ml 1,000 ML IV SCH (00:35)
[2023-06-10] MEDS ORDERED: potassium Cl 40MEQ/1/2NS 520ml 520 ML IV PRN (02:05)
[2023-06-10] MEDS ORDERED: magnesium 4gm in 100ml NS 100 ML IV PRN (02:05)
[2023-06-10] MEDS: oxyCODONE/APAP 5-325mg tablet PO PRN ×3 (02:05→19:03)
[2023-06-10] MEDS ORDERED: magnesium 2GM in 50ml NS 50 ML IV PRN (02:05)
[2023-06-10] MEDS ORDERED: potassium Cl 20 mEq SR tablet PO PRN (02:05)
--- NOTE | 2023-06-10 03:37 | NUR ---
Dr. Bishop notified of urinary retention. Per when she states unable to urinate and nothing in purewick, bladder scan patient if over 450 place pittman catheter for acute urinary retention. notified of elevated liver enzymes. No new orders at this time.
[2023-06-10 03:45] LABS: BASOPHILS % (AUTO) 0.5 % (0-1); EOSINOPHILS # (AUTO) 0.1 X10'3 (0-0.9); HEMATOCRIT 34.5 % (35.0-45.0); HEMOGLOBIN 11.6 g/dl (12.0-16.0); LYMPHOCYTES # (AUTO) 0.8 X10'3 (1.1-4.8); LYMPHOCYTES % (AUTO) 13.3 % (21-51); MEAN CORPUSCULAR HEMOGLOBIN 31.7 PG (27.0-31.0); MEAN CORPUSCULAR HGB CONC 33.7 g/dL (33.0-36.5); MEAN PLATELET VOLUME 7.6 FL (7.4-10.4); MONOCYTES # (AUTO) 0.7 X10'3 (0-0.9); MONOCYTES % (AUTO) 10.8 % (2-12); NEUTROPHILS # (AUTO) 4.5 X10'3 (1.8-7.7); NEUTROPHILS % (AUTO) 74.4 % (42-75); PLATELET COUNT 397 X10'3 (140-440); RED BLOOD COUNT 3.67 X10'6 (4.20-5.60); RED CELL DISTRIBUTION WIDTH 13.4 % (11.5-14.5); WHITE BLOOD COUNT 6.1 X10'3 (4.5-11.0)
--- NOTE | 2023-06-10 05:53 | NUR ---
pt up to bsc, pt able to urinate easier on commode than when using purewick. pt had 300mls out with commode.
[2023-06-10 06:13] LABS: ALANINE AMINOTRANSFERASE 109 U/L (12-78); ALBUMIN 3.8 G/DL (3.4-5.0); ALBUMIN/GLOBULIN RATIO 1.3 (1.1-1.5); ALKALINE PHOSPHATASE 49 IU/L (46-116); ANION GAP 13 (8-16); ASPARTATE AMINO TRANSFERASE 104 U/L (10-37); BILIRUBIN,TOTAL 0.6 MG/DL (0.1-1.0); BLOOD UREA NITROGEN 14 MG/DL (7-18); BUN/CREATININE RATIO 15.7 (10.0-20.0); CALCIUM 8.3 MG/DL (8.5-10.1); CHLORIDE 91 MMOL/L (99-107); CREATININE 0.89 MG/DL (0.40-0.90); GLUCOSE 90 MG/DL (70-104); MAGNESIUM 1.7 MG/DL (1.5-2.4); POTASSIUM 3.2 MMOL/L (3.5-5.1); SODIUM 128 MMOL/L (135-145); TOTAL CARBON DIOXIDE 24.5 MMOL/L (24-32); TOTAL PROTEIN 6.7 G/DL (6.4-8.2); eCRCL 49 ML/MIN; eGFR 62 ML/MIN
[2023-06-10 06:16] LABS: BILIRUBIN,URINE NEGATIVE (Neg); CLARITY,URINE CLEAR (Clear); COLOR,URINE YELLOW (Yellow); GLUCOSE, URINE NEGATIVE (Neg); KETONES,URINE TRACE mg/dl (Neg); LEUKOCYTE ESTERASE ,URINE NEGATIVE (Neg); NITRITES, URINE NEGATIVE (Neg); OCCULT BLOOD,URINE NEGATIVE (Neg); PH,URINE 6.5 (4.8-8.0); PROTEIN,URINE NEGATIVE (Neg); UROBILINOGEN,URINE 0.2 E.U/dL (0.2-1.0)
[2023-06-10 06:23] LABS: UA COLLECTION TYPE STRAIGHT CATH
[2023-06-10] MEDS: K and/or MAG REPLACEMENT MC SCH ×2 (08:00→20:00)
[2023-06-10] MEDS ORDERED: cephalexin 250mg capsule PO SCH (08:00)
[2023-06-10] MEDS: PITAVASTATIN CALCIUM 2 MG PO SCH (08:00)
--- NOTE | 2023-06-10 08:25 | NUR ---
PT URINATED AND BLADDER SCAN SHOWED POST VOID RESIDUAL OF 170. RN WILL CONT TO MONITOR.
[2023-06-10] MEDS: levoTHYROXINE 100mcg tablet PO SCH (08:38)
[2023-06-10] MEDS: pantoprazole 40mg Tablet.DR PO SCH (08:38)
[2023-06-10] MEDS: acetaminophen 325mg tablet PO PRN ×2 (08:38→16:07)
[2023-06-10] MEDS: amLODIPine 5mg tablet PO SCH (08:44)
[2023-06-10] MEDS: fenofibrate 145mg tablet PO SCH (08:45)
[2023-06-10] MEDS: losartan 50mg tablet PO SCH (08:46)
[2023-06-10] MEDS: ondansetron/PF 4mg/2ml inj IV PRN ×2 (08:47→15:58)
[2023-06-10] MEDS: cholecalciferol (vitamin D3) 1,000 unit (25mcg) tablet PO SCH (08:47)
[2023-06-10] MEDS: sodium chloride 1gm tablet PO SCH ×2 (08:52→19:12)
[2023-06-10] MEDS: heparin, porcine 5000 units/ml vial SQ SCH ×2 (08:53→19:04)
[2023-06-10] MEDS: duloxetine 30mg CAPSULE.DR PO SCH (08:53)
[2023-06-10] MEDS: potassium Cl 20 mEq SR tablet PO PRN ×2 (09:02→21:30)
--- NOTE | 2023-06-10 14:42 | NUR ---
RN ATTEMPTED TO CALL REPORT AND LIZBETH BRITTON HAS STEPPED OFF HER UNIT AND WILL RETURN CALL.
[2023-06-10 15:00] VITALS: BP 114/79; PULSE 70; RESP 14; TEMP 96.8; O2SAT 97
--- NOTE | 2023-06-10 15:03 | NUR ---
Patient in room ED 7. I have received report from REBA MCQUEEN FROM ER and had the opportunity to ask questions and assume patient care.
[2023-06-10 18:00] VITALS: BP 122/73; PULSE 79; RESP 19; TEMP 97.2; O2SAT 96
--- NOTE | 2023-06-10 18:40 | NUR ---
Problems reprioritized. Patient report given, questions answered & plan of care reviewed with REBA ALAN.
[2023-06-10 20:00] VITALS: RESP 19; O2SAT 96
[2023-06-10] MEDS ORDERED: zolpidem 5mg tablet PO SCH (21:00)
[2023-06-10 22:00] VITALS: BP 118/75; PULSE 76; RESP 17; TEMP 97; O2SAT 96
[2023-06-11] VITALS (7 sets, daily range): BP systolic 106–155; BP diastolic 64–88; PULSE 70–86; RESP 13–20; TEMP 97.7–99; O2SAT 94–98
[2023-06-11] MEDS: oxyCODONE/APAP 5-325mg tablet PO PRN ×5 (04:20→23:13)
[2023-06-11 06:26] LABS: BASOPHILS # (AUTO) 0.1 X10'3 (0-0.2); EOSINOPHILS # (AUTO) 0.1 X10'3 (0-0.9); HEMATOCRIT 34.2 % (35.0-45.0); HEMOGLOBIN 11.7 g/dl (12.0-16.0); LYMPHOCYTES # (AUTO) 0.8 X10'3 (1.1-4.8); LYMPHOCYTES % (AUTO) 16.2 % (21-51); MEAN CORPUSCULAR HEMOGLOBIN 32.2 PG (27.0-31.0); MEAN CORPUSCULAR HGB CONC 34.2 g/dL (33.0-36.5); MEAN CORPUSCULAR VOLUME 94.2 FL (78-98); MEAN PLATELET VOLUME 7.1 FL (7.4-10.4); MONOCYTES # (AUTO) 0.7 X10'3 (0-0.9); MONOCYTES % (AUTO) 13.7 % (2-12); NEUTROPHILS # (AUTO) 3.4 X10'3 (1.8-7.7); NEUTROPHILS % (AUTO) 67.1 % (42-75); PLATELET COUNT 372 X10'3 (140-440); RED BLOOD COUNT 3.63 X10'6 (4.20-5.60); RED CELL DISTRIBUTION WIDTH 13.1 % (11.5-14.5); WHITE BLOOD COUNT 5.1 X10'3 (4.5-11.0)
--- NOTE | 2023-06-11 06:28 | NUR ---
Problems reprioritized. Patient report given, questions answered & plan of care reviewed with Santosh
--- NOTE | 2023-06-11 06:29 | NUR ---
Patient in room PCU 3028. I have received report from EDITA BRITTON and had the opportunity to ask questions and assume patient care.
[2023-06-11 06:52] LABS: ALANINE AMINOTRANSFERASE 76 U/L (12-78); ALBUMIN 3.7 G/DL (3.4-5.0); ALBUMIN/GLOBULIN RATIO 1.5 (1.1-1.5); ALKALINE PHOSPHATASE 43 IU/L (46-116); ANION GAP 9 (8-16); ASPARTATE AMINO TRANSFERASE 52 U/L (10-37); BILIRUBIN,TOTAL 0.5 MG/DL (0.1-1.0); BLOOD UREA NITROGEN 14 MG/DL (7-18); BUN/CREATININE RATIO 15.7 (10.0-20.0); CALCIUM 8.6 MG/DL (8.5-10.1); CHLORIDE 93 MMOL/L (99-107); CREATININE 0.89 MG/DL (0.40-0.90); GLUCOSE 102 MG/DL (70-104); MAGNESIUM 1.7 MG/DL (1.5-2.4); POTASSIUM 3.6 MMOL/L (3.5-5.1); SODIUM 128 MMOL/L (135-145); TOTAL CARBON DIOXIDE 26.4 MMOL/L (24-32); TOTAL PROTEIN 6.2 G/DL (6.4-8.2); eCRCL 49 ML/MIN; eGFR 62 ML/MIN
--- NOTE | 2023-06-11 07:24 | NUR ---
Problems reprioritized. Patient report given TO YAZMIN REYNOLDS, questions answered & plan of care reviewed with .
--- NOTE | 2023-06-11 07:32 | NUR ---
Patient in room PCU 3028. I have received report from REBA Frost and had the opportunity to ask questions and assume patient care.
[2023-06-11] MEDS: PITAVASTATIN CALCIUM 2 MG PO SCH (08:00)
[2023-06-11] MEDS: sodium chloride 1gm tablet PO SCH ×2 (08:15→19:01)
[2023-06-11] MEDS: duloxetine 30mg CAPSULE.DR PO SCH (08:16)
[2023-06-11] MEDS: amLODIPine 5mg tablet PO SCH (08:16)
[2023-06-11] MEDS: losartan 50mg tablet PO SCH (08:16)
[2023-06-11] MEDS: pantoprazole 40mg Tablet.DR PO SCH (08:16)
[2023-06-11] MEDS: levoTHYROXINE 100mcg tablet PO SCH (08:17)
[2023-06-11] MEDS: heparin, porcine 5000 units/ml vial SQ SCH ×2 (08:17→19:02)
[2023-06-11] MEDS: cholecalciferol (vitamin D3) 1,000 unit (25mcg) tablet PO SCH (08:17)
[2023-06-11] MEDS: DICLOFENAC SODIUM 1% gel 1 APPLIC APPLIC TP PRN (08:22)
[2023-06-11] MEDS: fenofibrate 145mg tablet PO SCH (08:22)
[2023-06-11] MEDS: K and/or MAG REPLACEMENT MC SCH ×2 (08:31→20:00)
--- NOTE | 2023-06-11 15:24 | NUR ---
Problems reprioritized. Patient report given, questions answered & plan of care reviewed with REBA Cortez.
--- NOTE | 2023-06-11 18:20 | NUR ---
Problems reprioritized. Patient report given, questions answered & plan of care reviewed with REBA Terry.
[2023-06-12 02:53] VITALS: BP 134/84; PULSE 80; RESP 17; TEMP 98; O2SAT 96
[2023-06-12] MEDS: oxyCODONE/APAP 5-325mg tablet PO PRN ×3 (05:30→13:21)
[2023-06-12 06:00] VITALS: BP 147/82; PULSE 77; RESP 20; TEMP 97.9; O2SAT 96
[2023-06-12 06:08] LABS: BASOPHILS # (AUTO) 0.1 X10'3 (0-0.2); BASOPHILS % (AUTO) 1.3 % (0-1); EOSINOPHILS # (AUTO) 0.2 X10'3 (0-0.9); EOSINOPHILS % (AUTO) 2.8 % (0-6); HEMATOCRIT 36.6 % (35.0-45.0); HEMOGLOBIN 12.5 g/dl (12.0-16.0); LYMPHOCYTES # (AUTO) 1.1 X10'3 (1.1-4.8); LYMPHOCYTES % (AUTO) 19.7 % (21-51); MEAN CORPUSCULAR HEMOGLOBIN 32.6 PG (27.0-31.0); MEAN CORPUSCULAR HGB CONC 34.1 g/dL (33.0-36.5); MEAN CORPUSCULAR VOLUME 95.5 FL (78-98); MEAN PLATELET VOLUME 7.1 FL (7.4-10.4); MONOCYTES # (AUTO) 0.7 X10'3 (0-0.9); MONOCYTES % (AUTO) 11.6 % (2-12); NEUTROPHILS # (AUTO) 3.7 X10'3 (1.8-7.7); NEUTROPHILS % (AUTO) 64.6 % (42-75); PLATELET COUNT 403 X10'3 (140-440); RED BLOOD COUNT 3.83 X10'6 (4.20-5.60); RED CELL DISTRIBUTION WIDTH 13.8 % (11.5-14.5); WHITE BLOOD COUNT 5.7 X10'3 (4.5-11.0)
[2023-06-12 06:33] LABS: ALANINE AMINOTRANSFERASE 63 U/L (12-78); ALBUMIN 3.8 G/DL (3.4-5.0); ALBUMIN/GLOBULIN RATIO 1.4 (1.1-1.5); ALKALINE PHOSPHATASE 41 IU/L (46-116); ANION GAP 7 (8-16); ASPARTATE AMINO TRANSFERASE 34 U/L (10-37); BILIRUBIN,TOTAL 0.4 MG/DL (0.1-1.0); BLOOD UREA NITROGEN 16 MG/DL (7-18); BUN/CREATININE RATIO 16.5 (10.0-20.0); CALCIUM 9.1 MG/DL (8.5-10.1); CHLORIDE 95 MMOL/L (99-107); CREATININE 0.97 MG/DL (0.40-0.90); GLUCOSE 96 MG/DL (70-104); MAGNESIUM 1.6 MG/DL (1.5-2.4); POTASSIUM 3.6 MMOL/L (3.5-5.1); SODIUM 129 MMOL/L (135-145); TOTAL PROTEIN 6.6 G/DL (6.4-8.2); eCRCL 45 ML/MIN; eGFR 56 ML/MIN
--- NOTE | 2023-06-12 06:37 | NUR ---
Problems reprioritized. Patient report given, questions answered & plan of care reviewed with Rach BRITTON. Pt stable at shift change.
[2023-06-12 08:00] VITALS: RESP 16; O2SAT 96
[2023-06-12] MEDS: PITAVASTATIN CALCIUM 2 MG PO SCH (08:00)
[2023-06-12] MEDS: K and/or MAG REPLACEMENT MC SCH (08:00)
[2023-06-12] MEDS: pantoprazole 40mg Tablet.DR PO SCH (09:07)
[2023-06-12] MEDS: amLODIPine 5mg tablet PO SCH (09:09)
[2023-06-12] MEDS: fenofibrate 145mg tablet PO SCH (09:10)
[2023-06-12] MEDS: levoTHYROXINE 100mcg tablet PO SCH (09:10)
[2023-06-12] MEDS: sodium chloride 1gm tablet PO SCH (09:10)
[2023-06-12] MEDS: duloxetine 30mg CAPSULE.DR PO SCH (09:10)
[2023-06-12] MEDS: cholecalciferol (vitamin D3) 1,000 unit (25mcg) tablet PO SCH (09:10)
[2023-06-12 09:11] VITALS: BP_SYST 147; PULSE 77
[2023-06-12] MEDS: DICLOFENAC SODIUM 1% gel 1 APPLIC APPLIC TP PRN (09:11)
[2023-06-12] MEDS: losartan 50mg tablet PO SCH (09:11)
[2023-06-12] MEDS: heparin, porcine 5000 units/ml vial SQ SCH (09:15)
[2023-06-12 13:21] VITALS: RESP 12
--- NOTE | 2023-06-12 14:48 | NUR ---
Pt up and dressed ready for discharge. Pt AOX4. Pt states pain is tolerable for discharge. Pt's PIV removed with cannula intact. Pt's discharge paperwork reviewed with patient and questions answered. No changes to home medications. Pt states she understands. Pt's picking up patient in personal vehicle.
== END 2023-06-12 15:13 | disposition home health service (06) | DRG 640 ==
LOC: ER 17:02 → ED HOLD 22:45 → EDBEDREQTM 06-10 04:58 → EDBEDREQSVC 06-10 04:58 → PCU 3S 06-10 15:17
PROVIDERS: ADMIT Internal Medicine Critical Care Medicine; ATTEND Internal Medicine
DX: E87.1 Hypo-osmolality and hyponatremia (principal); G93.41 Metabolic encephalopathy; E86.0 Dehydration; E87.6 Hypokalemia; E03.9 Hypothyroidism, unspecified; I10 Essential (primary) hypertension; G89.29 Other chronic pain; K21.9 Gastro-esophageal reflux disease without esophagitis; M54.9 Dorsalgia, unspecified; E78.5 Hyperlipidemia, unspecified; F03.90 Unspecified dementia, unspecified severity, without behavioral disturbance, psychotic disturbance, mood disturbance, and anxiety; Z88.8 Allergy status to other drugs, medicaments and biological substances; Z88.0 Allergy status to penicillin; Z79.899 Other long term (current) drug therapy; Z88.1 Allergy status to other antibiotic agents
CPT/HCPCS: 36415; 70450; 72125; 80048; 80053; 80320; 81001; 81003; 82436; 82570; 83690; 83735; 83880; 83930; 83935; 84100; 84133; 84300; 84439; 84443; 84550; 85025; 85610; 85730; 87081; 93005; 97116; 97161; 97530; 99285; C1758; G0378; J1644; J2405; J7030; J7040

== ENCOUNTER 2024-03-17 22:31 | Emergency (ER) | payer MEDICARE, BC ==
[~2024-03-17] VITALS: Ht 160 cm; Wt 78.2 kg
[~2024-03-17 22:31] MED LIST changes: +AMLO10TA13 PO; +CHOL500044 PO; +DULO30CA52 PO; +LEVO100T PO; -OXYC5TAB2 PO; +PER5325T PO; -PREG200C PO; +PREG200C29 PO; +ZOLP5TAB8 PO
[2024-03-17] MEDS ORDERED: iohexol 350MG/ML 100ml bottle IV ONE (23:29)
[2024-03-18] MEDS: acetaminophen 325mg tablet PO ONE (00:09)
[2024-03-18 00:27] LABS: BASOPHILS % (AUTO) 0.3 % (0-1); EOSINOPHILS % (AUTO) 0.4 % (0-6); HEMATOCRIT 35.4 % (35.0-45.0); HEMOGLOBIN 11.8 g/dl (12.0-16.0); LYMPHOCYTES # (AUTO) 0.6 X10'3 (1.1-4.8); LYMPHOCYTES % (AUTO) 7.9 % (21-51); MEAN CORPUSCULAR HEMOGLOBIN 30.6 PG (27.0-31.0); MEAN CORPUSCULAR HGB CONC 33.4 g/dL (33.0-36.5); MEAN CORPUSCULAR VOLUME 91.4 FL (78-98); MEAN PLATELET VOLUME 7.5 FL (7.4-10.4); MONOCYTES # (AUTO) 0.7 X10'3 (0-0.9); MONOCYTES % (AUTO) 9.3 % (2-12); NEUTROPHILS # (AUTO) 5.9 X10'3 (1.8-7.7); NEUTROPHILS % (AUTO) 82.1 % (42-75); PLATELET COUNT 292 X10'3 (140-440); RED BLOOD COUNT 3.88 X10'6 (4.20-5.60); RED CELL DISTRIBUTION WIDTH 15.7 % (11.5-14.5); WHITE BLOOD COUNT 7.1 X10'3 (4.5-11.0)
[2024-03-18 00:52] LABS: ALANINE AMINOTRANSFERASE 136 U/L (12-78); ALBUMIN 3.5 G/DL (3.4-5.0); ALKALINE PHOSPHATASE 53 IU/L (46-116); ANION GAP 7 (8-16); ASPARTATE AMINO TRANSFERASE 124 U/L (10-37); BILIRUBIN,TOTAL 0.4 MG/DL (0.1-1.0); BLOOD UREA NITROGEN 14 MG/DL (7-18); BUN/CREATININE RATIO 9.4 (10.0-20.0); CHLORIDE 92 MMOL/L (99-107); CREATININE 1.49 MG/DL (0.40-0.90); GLUCOSE 122 MG/DL (70-104); POTASSIUM 3.8 MMOL/L (3.5-5.1); SODIUM 126 MMOL/L (135-145); TOTAL CARBON DIOXIDE 26.6 MMOL/L (24-32); TOTAL PROTEIN 6.9 G/DL (6.4-8.2); eCRCL 27 ML/MIN; eGFR 34 ML/MIN
[2024-03-18 00:56] LABS: MAGNESIUM 1.6 MG/DL (1.5-2.4); PRO BRAIN NATRIURETIC PEPTIDE 223 PG/ML (0-125)
[2024-03-18 01:43] LABS: FREE T4 (FREE THYROXINE) 1.48 NG/DL (0.73-1.40)
[2024-03-18] MEDS ORDERED: TETanus/Pertussis (Acell)/Diphther VAC/PF (Tdap-Adult) 0.5ml syringe IMVAC ONE (03:30)
[2024-03-18] MEDS: TETanus/Pertussis (Acell)/Diphther VAC/PF (Tdap-Adult) 0.5ml syringe IMVAC ONE (03:35)
[2024-03-18 04:00] VITALS: BP 131/83; PULSE 83; RESP 16; TEMP 98.5; O2SAT 95
== END 2024-03-18 04:02 | disposition home or self-care (01) ==
LOC: ER 22:31
DX: S51.811A Laceration without foreign body of right forearm, initial encounter (principal); S51.012A Laceration without foreign body of left elbow, initial encounter; S10.93XA Contusion of unspecified part of neck, initial encounter; S10.91XA Abrasion of unspecified part of neck, initial encounter; Z20.822 Contact with and (suspected) exposure to COVID-19; I10 Essential (primary) hypertension; K21.9 Gastro-esophageal reflux disease without esophagitis; E03.9 Hypothyroidism, unspecified; G89.29 Other chronic pain; M54.9 Dorsalgia, unspecified; Z85.9 Personal history of malignant neoplasm, unspecified; Z88.1 Allergy status to other antibiotic agents; Z88.8 Allergy status to other drugs, medicaments and biological substances; Z79.899 Other long term (current) drug therapy; W18.30XA Fall on same level, unspecified, initial encounter; Y93.89 Activity, other specified; Y92.89 Other specified places as the place of occurrence of the external cause; Y99.8 Other external cause status
CPT/HCPCS: 36415; 70450; 70498; 71045; 73090; 80053; 83605; 83735; 83880; 84439; 84484; 85025; 87040; 87811; 90471; 90715; 93005; 99285; J3490; Q9967; 87077; 87186; A4565; A6258

== ENCOUNTER 2024-06-17 04:50 | Inpatient (IN) | payer MEDICARE, BC ==
[~2024-06-17] VITALS: Ht 160 cm; Wt 88.0 kg
[2024-06-17] MEDS: methylPREDNISolone sod succ 125mg/2ml vial IV ONE (05:24)
[2024-06-17] MEDS: normal saline 1000ml 1,000 ML IV ONE (05:24)
[2024-06-17] MEDS: ipratropium/albuterol 3ml nebule NEB ONE (05:29)
[2024-06-17 05:34] VITALS: PULSE 80; RESP 18; O2SAT 96
[2024-06-17 05:36] VITALS: PULSE 79; RESP 18; O2SAT 96
[2024-06-17 05:40] LABS: BASOPHILS # (AUTO) 0.1 X10'3 (0-0.2); EOSINOPHILS # (AUTO) 0.1 X10'3 (0-0.9); EOSINOPHILS % (AUTO) 1.8 % (0-6); HEMATOCRIT 35.3 % (35.0-45.0); HEMOGLOBIN 11.9 g/dl (12.0-16.0); LYMPHOCYTES # (AUTO) 1.3 X10'3 (1.1-4.8); LYMPHOCYTES % (AUTO) 20.8 % (21-51); MEAN CORPUSCULAR HEMOGLOBIN 29.4 PG (27.0-31.0); MEAN CORPUSCULAR HGB CONC 33.7 g/dL (33.0-36.5); MEAN CORPUSCULAR VOLUME 87.2 FL (78-98); MEAN PLATELET VOLUME 7.1 FL (7.4-10.4); MONOCYTES # (AUTO) 0.6 X10'3 (0-0.9); MONOCYTES % (AUTO) 10.6 % (2-12); NEUTROPHILS % (AUTO) 65.8 % (42-75); PLATELET COUNT 415 X10'3 (140-440); RED BLOOD COUNT 4.05 X10'6 (4.20-5.60); RED CELL DISTRIBUTION WIDTH 20.5 % (11.5-14.5); WHITE BLOOD COUNT 6.1 X10'3 (4.5-11.0)
[2024-06-17 05:59] LABS: ANISOCYTOSIS 3+; MICROCYTOSIS 1+; PLATELET ESTIMATE NORMAL
[2024-06-17 06:00] LABS: BURR CELLS FEW; HYPOCHROMASIA 1+
[2024-06-17 06:10] LABS: D-DIMER 1.17 MG/L FEU (0-0.50)
[2024-06-17 06:15] LABS: ALANINE AMINOTRANSFERASE 39 U/L (12-78); ALBUMIN 3.8 G/DL (3.4-5.0); ALBUMIN/GLOBULIN RATIO 1.2 (1.1-1.5); ALKALINE PHOSPHATASE 41 IU/L (46-116); ANION GAP 8 (8-16); ASPARTATE AMINO TRANSFERASE 56 U/L (10-37); BILIRUBIN,TOTAL 0.5 MG/DL (0.1-1.0); BLOOD UREA NITROGEN 19 MG/DL (7-18); BUN/CREATININE RATIO 14.2 (10.0-20.0); CHLORIDE 92 MMOL/L (99-107); CREATININE 1.34 MG/DL (0.40-0.90); GLUCOSE 113 MG/DL (70-104); POTASSIUM 3.7 MMOL/L (3.5-5.1); SODIUM 128 MMOL/L (135-145); TOTAL CARBON DIOXIDE 28.1 MMOL/L (24-32); TOTAL PROTEIN 6.9 G/DL (6.4-8.2); eCRCL 30 ML/MIN; eGFR 39 ML/MIN
[2024-06-17 06:22] LABS: PRO BRAIN NATRIURETIC PEPTIDE 309 PG/ML (0-125)
[2024-06-17] MEDS: oxyCODONE/APAP 5-325mg tablet PO ONE ×2 (06:53→10:09)
[2024-06-17 07:55] LABS: BILIRUBIN,URINE NEGATIVE (Neg); CLARITY,URINE CLEAR (Clear); COLOR,URINE YELLOW (Yellow); GLUCOSE, URINE NEGATIVE (Neg); KETONES,URINE NEGATIVE (Neg); LEUKOCYTE ESTERASE ,URINE NEGATIVE (Neg); NITRITES, URINE NEGATIVE (Neg); OCCULT BLOOD,URINE NEGATIVE (Neg); PH,URINE 7.5 (4.8-8.0); PROTEIN,URINE NEGATIVE (Neg); UROBILINOGEN,URINE 0.2 E.U/dL (0.2-1.0)
[2024-06-17 08:15] LABS: UA COLLECTION TYPE VOIDED
[2024-06-17] MEDS ORDERED: iohexol 350MG/ML 100ml bottle IV ONE (08:29)
[2024-06-17] MEDS: LORazepam 2 mg/ml vial IV ONE (10:09)
[2024-06-17] MEDS ORDERED: magnesium sulf-water 2g/50mL 50 ML IV PRN (12:35)
[2024-06-17] MEDS ORDERED: magnesium sulf-water 4G/100mL 100 ML IV PRN (12:35)
[2024-06-17] MEDS ORDERED: magnesium Cl slow-release 64mg tablet PO PRN (12:35)
[2024-06-17] MEDS ORDERED: potassium Cl 40MEQ/1/2NS 520ml 520 ML IV PRN (12:35)
[2024-06-17] MEDS ORDERED: potassium Cl 20 mEq SR tablet PO PRN ×2 (12:35)
[2024-06-17] MEDS ORDERED: ondansetron/PF 4mg/2ml inj IV PRN (12:35)
[2024-06-17] MEDS ORDERED: mag hydrox/Alum hydrox/simeth 30ml oral suspension PO PRN (12:35)
[2024-06-17] MEDS ORDERED: magnesium hydroxide 30ml (MOM) UD suspension PO PRN (12:35)
[2024-06-17] MEDS: CefTRIAXone/D5W-Rocephin 1gm 50 ML IV SCH (14:11)
[2024-06-17] MEDS: oxyCODONE/APAP 5-325mg tablet PO PRN (14:12)
[2024-06-17] MEDS: azithromycin 250mg tablet PO SCH (14:12)
[2024-06-17] MEDS: normal saline 1000ml 1,000 ML IV SCH (14:12)
[2024-06-17 14:35] LABS: CHOL/HDL RATIO 2.5 (0.00-4.99); CHOLESTEROL 276 MG/DL (0-200); HDL CHOLESTEROL 109 MG/DL (35-60); LDL CHOLESTEROL 130 MG/DL (50-100); TRIGLYCERIDES 50 MG/DL (20-135)
[2024-06-17 15:13] LABS: OSMOLALITY 286 MOSM/K (280-300)
[2024-06-17] MEDS ORDERED: albuterol 2.5 MG/3 ML nebule NEB PRN (15:45)
[2024-06-17] MEDS ORDERED: ipratropium/albuterol 3ml nebule NEB PRN (15:45)
[2024-06-17 18:09] LABS: ALBUMIN 3.9 G/DL (3.4-5.0); ANION GAP 11 (8-16); BLOOD UREA NITROGEN 17 MG/DL (7-18); BUN/CREATININE RATIO 13.2 (10.0-20.0); CALCIUM 9.6 MG/DL (8.5-10.1); CHLORIDE 93 MMOL/L (99-107); CREATININE 1.29 MG/DL (0.40-0.90); GLUCOSE 153 MG/DL (70-104); POTASSIUM 3.7 MMOL/L (3.5-5.1); SODIUM 132 MMOL/L (135-145); TOTAL CARBON DIOXIDE 28.1 MMOL/L (24-32); eCRCL 32 ML/MIN; eGFR 40 ML/MIN
[2024-06-17] MEDS ORDERED: oxyCODONE/APAP 5-325mg tablet PO PRN (18:30)
[2024-06-17] MEDS: K and/or MAG REPLACEMENT MC SCH (19:00)
[2024-06-17] MEDS: docusate sod 100mg capsule PO SCH (19:04)
[2024-06-17] MEDS: heparin, porcine 5000 units/ml vial SQ SCH (19:05)
[2024-06-17 19:16] LABS: THYROID STIMULATING HORMONE 11.87 ulU/ml (0.34-4.50)
[2024-06-17] MEDS ORDERED: losartan 50mg tablet PO SCH (20:00)
[2024-06-17] MEDS ORDERED: methylPREDNISolone sod succ/PF 40mg inj. IV SCH (20:00)
[2024-06-17] MEDS: pregabalin 25mg capsule PO SCH (20:13)
[2024-06-17] MEDS: methylPREDNISolone sod succ/PF 40mg inj. IV SCH (20:13)
[2024-06-17 20:40] VITALS: BP 145/94; PULSE 92; RESP 20; TEMP 97.6; O2SAT 98
[2024-06-17] MEDS: zolpidem 5mg tablet PO SCH (21:33)
[2024-06-17 22:49] VITALS: BP 137/77; PULSE 94; RESP 17; TEMP 98.6; O2SAT 96
[2024-06-18] VITALS (7 sets, daily range): BP systolic 122–149; BP diastolic 75–97; PULSE 81–110; RESP 16–22; TEMP 98–98.4; O2SAT 91–100
[2024-06-18 05:48] LABS: BASOPHILS % (AUTO) 0.1 % (0-1); EOSINOPHILS % (AUTO) 0 % (0-6); HEMATOCRIT 31.2 % (35.0-45.0); HEMOGLOBIN 10.5 g/dl (12.0-16.0); LYMPHOCYTES # (AUTO) 0.6 X10'3 (1.1-4.8); MEAN CORPUSCULAR HEMOGLOBIN 29.8 PG (27.0-31.0); MEAN CORPUSCULAR HGB CONC 33.8 g/dL (33.0-36.5); MEAN CORPUSCULAR VOLUME 88.1 FL (78-98); MEAN PLATELET VOLUME 7.1 FL (7.4-10.4); MONOCYTES # (AUTO) 0.1 X10'3 (0-0.9); MONOCYTES % (AUTO) 3.3 % (2-12); NEUTROPHILS % (AUTO) 81.6 % (42-75); PLATELET COUNT 380 X10'3 (140-440); RED BLOOD COUNT 3.54 X10'6 (4.20-5.60); RED CELL DISTRIBUTION WIDTH 20.6 % (11.5-14.5); WHITE BLOOD COUNT 3.7 X10'3 (4.5-11.0)
[2024-06-18 06:09] LABS: APTT 25 SECONDS (22-32)
[2024-06-18 06:26] LABS: ALANINE AMINOTRANSFERASE 63 U/L (12-78); ALBUMIN 3.3 G/DL (3.4-5.0); ALBUMIN/GLOBULIN RATIO 1.2 (1.1-1.5); ALKALINE PHOSPHATASE 39 IU/L (46-116); ANION GAP 11 (8-16); ASPARTATE AMINO TRANSFERASE 46 U/L (10-37); BILIRUBIN,TOTAL 0.3 MG/DL (0.1-1.0); BLOOD UREA NITROGEN 16 MG/DL (7-18); BUN/CREATININE RATIO 14.7 (10.0-20.0); CALCIUM 7.8 MG/DL (8.5-10.1); CHLORIDE 97 MMOL/L (99-107); CREATININE 1.09 MG/DL (0.40-0.90); GLUCOSE 136 MG/DL (70-104); MAGNESIUM 1.6 MG/DL (1.5-2.4); PHOSPHORUS 2.7 MG/DL (2.3-4.5); POTASSIUM 3.6 MMOL/L (3.5-5.1); SODIUM 133 MMOL/L (135-145); TOTAL CARBON DIOXIDE 25.5 MMOL/L (24-32); TOTAL PROTEIN 6.1 G/DL (6.4-8.2); eCRCL 37 ML/MIN; eGFR 49 ML/MIN
[2024-06-18] MEDS: cholecalciferol (vitamin D3) 1,000 unit (25mcg) tablet PO SCH (07:28)
[2024-06-18] MEDS: levoTHYROXINE 100mcg tablet PO SCH (07:29)
[2024-06-18] MEDS: atorvastatin 10mg tablet PO SCH (07:29)
[2024-06-18] MEDS: amLODIPine 5mg tablet PO SCH (07:29)
[2024-06-18] MEDS: fenofibrate 145mg tablet PO SCH (07:30)
[2024-06-18] MEDS: pantoprazole 40mg Tablet.DR PO SCH (07:30)
[2024-06-18] MEDS: losartan 50mg tablet PO SCH (07:30)
[2024-06-18] MEDS: acetaminophen 325mg tablet PO PRN (07:31)
[2024-06-18 11:08] LABS: FREE T4 (FREE THYROXINE) 1.11 NG/DL (0.73-1.40)
[2024-06-18] MEDS: oxymetazoline 15 ML nasal spray NS SCH (12:50)
[2024-06-18] MEDS: furosemide 20 MG/2 ML vial IV SCH (13:22)
[2024-06-19 05:45] LABS: BASOPHILS % (AUTO) 0.2 % (0-1); EOSINOPHILS % (AUTO) 0.1 % (0-6); HEMATOCRIT 32.5 % (35.0-45.0); HEMOGLOBIN 10.8 g/dl (12.0-16.0); LYMPHOCYTES # (AUTO) 1.3 X10'3 (1.1-4.8); LYMPHOCYTES % (AUTO) 22.7 % (21-51); MEAN CORPUSCULAR HEMOGLOBIN 29.5 PG (27.0-31.0); MEAN CORPUSCULAR HGB CONC 33.4 g/dL (33.0-36.5); MEAN CORPUSCULAR VOLUME 88.3 FL (78-98); MEAN PLATELET VOLUME 6.9 FL (7.4-10.4); MONOCYTES # (AUTO) 0.6 X10'3 (0-0.9); MONOCYTES % (AUTO) 10.4 % (2-12); NEUTROPHILS % (AUTO) 66.6 % (42-75); PLATELET COUNT 378 X10'3 (140-440); RED BLOOD COUNT 3.68 X10'6 (4.20-5.60); RED CELL DISTRIBUTION WIDTH 20.8 % (11.5-14.5); WHITE BLOOD COUNT 5.9 X10'3 (4.5-11.0)
[2024-06-19 05:48] LABS: APTT 24 SECONDS (22-32); PROTHROMBIN TIME 10.8 SECONDS (9.0-12.0)
[2024-06-19 05:52] LABS: ALANINE AMINOTRANSFERASE 45 U/L (12-78); ALBUMIN 3.2 G/DL (3.4-5.0); ALBUMIN/GLOBULIN RATIO 1.3 (1.1-1.5); ALKALINE PHOSPHATASE 32 IU/L (46-116); ANION GAP 9 (8-16); ASPARTATE AMINO TRANSFERASE 28 U/L (10-37); BILIRUBIN,TOTAL 0.3 MG/DL (0.1-1.0); BLOOD UREA NITROGEN 22 MG/DL (7-18); CALCIUM 8.2 MG/DL (8.5-10.1); CHLORIDE 99 MMOL/L (99-107); CREATININE 1.16 MG/DL (0.40-0.90); GLUCOSE 88 MG/DL (70-104); MAGNESIUM 1.9 MG/DL (1.5-2.4); PHOSPHORUS 2.4 MG/DL (2.3-4.5); POTASSIUM 3.6 MMOL/L (3.5-5.1); SODIUM 137 MMOL/L (135-145); TOTAL CARBON DIOXIDE 28.8 MMOL/L (24-32); TOTAL PROTEIN 5.7 G/DL (6.4-8.2); eCRCL 35 ML/MIN; eGFR 46 ML/MIN
[2024-06-19 06:00] VITALS: BP 137/81; PULSE 82; RESP 18; TEMP 97.9; O2SAT 98
[2024-06-19 08:00] VITALS: RESP 18; O2SAT 98
[2024-06-19 10:00] VITALS: BP 99/67; PULSE 80; RESP 14; TEMP 98.6; O2SAT 95
[2024-06-19] MEDS ORDERED: FURO-150 PO (10:36)
[2024-06-19 10:47] VITALS: PULSE 80; RESP 16; O2SAT 97
== END 2024-06-19 12:45 | disposition home or self-care (01) | DRG 291 ==
LOC: ER 04:51 → ED HOLD 12:41 → EDBEDREQ 20:07 → ORTHO 4S 20:35
PROVIDERS: ADMIT Internal Medicine; ATTEND Internal Medicine
PROC: B32T1ZZ Computerized Tomography (CT Scan) of Left Pulmonary Artery using Low Osmolar Contrast (ICD-10-PCS; principal; 2024-06-17)
PROC: B3201ZZ Computerized Tomography (CT Scan) of Thoracic Aorta using Low Osmolar Contrast (ICD-10-PCS; 2024-06-17)
PROC: B32S1ZZ Computerized Tomography (CT Scan) of Right Pulmonary Artery using Low Osmolar Contrast (ICD-10-PCS; 2024-06-17)
DX: I11.0 Hypertensive heart disease with heart failure (principal); I50.33 Acute on chronic diastolic (congestive) heart failure; J96.01 Acute respiratory failure with hypoxia; N17.9 Acute kidney failure, unspecified; J44.1 Chronic obstructive pulmonary disease with (acute) exacerbation; E87.1 Hypo-osmolality and hyponatremia; M48.56XA Collapsed vertebra, not elsewhere classified, lumbar region, initial encounter for fracture; G89.29 Other chronic pain; M54.9 Dorsalgia, unspecified; K21.9 Gastro-esophageal reflux disease without esophagitis; E86.0 Dehydration; E03.9 Hypothyroidism, unspecified; Z20.822 Contact with and (suspected) exposure to COVID-19; Z88.1 Allergy status to other antibiotic agents; Z88.8 Allergy status to other drugs, medicaments and biological substances; Z88.5 Allergy status to narcotic agent; Z79.899 Other long term (current) drug therapy
CPT/HCPCS: 36415; 71045; 71275; 80048; 80053; 80061; 81003; 83735; 83880; 83930; 84100; 84145; 84439; 84443; 84484; 85008; 85025; 85379; 85610; 85730; 87081; 87811; 93005; 93308; 94640; 94760; 96374; 96375; 97161; 97530; 97535; 99285; A4615; G0378; J0696; J1644; J1940; J2060; J2919; J7030; Q9967